=== PATIENT | male | born 1955 | race Caucasian/White ===

== ENCOUNTER 2018-06-27 05:06 | Inpatient (IN) | payer OTHER ==
[~2018-06-27] VITALS: Ht 182.9 cm; Wt 113.4 kg
[2018-06-27] MEDS ORDERED: CELECOXIB 100 MG CAPSULE ONE (05:33)
[2018-06-27] MEDS ORDERED: oxyCODONE HCL SR 10MG TAB.SR.12H PO ONE (05:33)
[2018-06-27] MEDS ORDERED: CEFAZOLIN SODIUM/DEXTROSE,ISO 50 ML IV ONE (05:34)
[2018-06-27] MEDS ORDERED: ACETAMINOPHEN 325 MG TABLET ONE (05:34)
[2018-06-27] MEDS ORDERED: BACITRACIN 50000 UNITS/VIAL ONE (05:59)
[2018-06-27] MEDS ORDERED: ANESTHESIA TRAY IN PYXIS 1 EA TRAY MC ONE (05:59)
[2018-06-27] MEDS ORDERED: KETOROLAC TROMETHAMINE INJ 30 MG/ML VIAL ONE (05:59)
[2018-06-27] MEDS ORDERED: BUPIVACAINE MPF 0.5% W/EPI INJ 30 ML VIAL ONE (05:59)
[2018-06-27] MEDS ORDERED: BUPIVACAINE 0.75% DEXT-PF 2 ML AMPUL ONE (06:26)
[2018-06-27] MEDS ORDERED: FENTANYL PF 100MCG/2ML AMPUL ONE (06:26)
[2018-06-27] MEDS ORDERED: MIDAZOLAM HCL 2 MG/2ML VIAL ONE (06:27)
[2018-06-27] MEDS ORDERED: TRANEXAMIC ACID 3,000 MG in SODIUM CHLORIDE IRRIG SOLUTION 70 ML IR ONE (07:00)
[2018-06-27] MEDS ORDERED: TYLENOL 650 MG TABLET PO PRN (10:00)
[2018-06-27] MEDS ORDERED: DULCOLAX 10 MG/SUPP.RECT RC PRN (10:00)
[2018-06-27] MEDS ORDERED: HYDROCODONE/APAP 5/325MG 1 EACH TABLET PO PRN ×2 (10:00→13:30)
[2018-06-27] MEDS ORDERED: SENOKOT 8.6 MG TABLET PO PRN (10:00)
[2018-06-27] MEDS ORDERED: ZOFRAN 4mg/2ML IV PRN (10:00)
[2018-06-27] MEDS ORDERED: COLACE 250 MG CAPSULE PO PRN (10:00)
[2018-06-27 10:05] VITALS: BP 128/78
--- NOTE | 2018-06-27 10:10 | NUR ---
RN NOTES PATIENT ALERT AND ORIENTED X4, COMFORTABLE AT THIS TIME, ANESTHESIA STARTING TO WEAR OFF, NO DISTRESS NOTED, VITALS STABLE, ON IVF LR AT THIS TIME FROM RECOVERY. REPORT GIVEN. PLACED ON TELE MONITOR. NEEDS ATTENDED AND MET, ICE PACK APPLIED ON LEFT KNEE. SKIN ASSESSMENT UNABLE TO COMPLETE DUE TO PAIN, UNABLE TO CHECK PATIENT'S BACK AT THIS TIME. CALL LIGHT WITHIN REACH, WILL CONTINUE TO MONITOR.
[2018-06-27] MEDS ORDERED: MORPHINE SULFATE INJ 2 MG/ML DISP.SYRIN IV PRN (11:00)
[2018-06-27] MEDS: HYDROMORPHONE INJ 2 MG/ML DISP.SYRIN SQ PRN (11:26)
[2018-06-27] MEDS: IV D5/0.45 NACL 1,000 ML IV PRN ×2 (11:29→19:57)
[2018-06-27] MEDS ORDERED: ONDANSETRON HCL/PF 4 MG/2 ML VIAL IVP PRN ×2 (11:30→13:30)
[2018-06-27] MEDS ORDERED: diphenhydrAMINE HCL 25 MG CAPSULE PO PRN (11:30)
[2018-06-27] MEDS ORDERED: CLONIDINE HCL 0.1 MG TABLET PO PRN (11:30)
[2018-06-27] MEDS ORDERED: MENTHOL/CETYLPYRD (CEPACOL) 1 LOZ LOZENGE MM PRN (11:30)
[2018-06-27] MEDS ORDERED: MAG HYDROX/AL HYDROX/SIMETH 30 ML UDC PO PRN ×2 (11:30→13:30)
[2018-06-27] MEDS ORDERED: NALOXONE HCL 0.4 MG/ML AMPUL IV PRN (11:30)
[2018-06-27] MEDS ORDERED: MAGNESIUM HYDROXIDE 30 ML UDC PO PRN ×2 (11:30→13:30)
[2018-06-27] MEDS ORDERED: oxyCODONE IR immediate release 5 MG PO PRN ×2 (11:30)
--- NOTE | 2018-06-27 11:30 | NUR ---
RN NOTES PATIENT IS C/O 10/10 PAIN ON LEFT KNEE. GIVEN DILAUDID 1MG. PATIENT IS ON TELE MONITOR WHICH SHOWS A. FLUTTER IN 40S. DR. SOLARES MADE AWARE WITH ORDER OF STAT EKG AND CONSULT WITH DR. RAUSCH. PATIENT'S NEEDS ATTENDED, KEPT COMFORTABLE, CALL LIGHT WITHIN REACH,WILL CONTINUE TO MONITOR.
[2018-06-27] MEDS ORDERED: METF-442 PO (11:47)
[2018-06-27] MEDS ORDERED: LISI-607 PO (11:47)
[2018-06-27 12:11] LABS: BASOPHILS % (AUTO) 0.5 % (0.0-2.0); EOSINOPHILS % (AUTO) 1.8 % (0.0-6.0); HEMATOCRIT 40 % (39-51); HEMOGLOBIN 12.8 g/dL (13.5-17.5); LYMPHOCYTES # (AUTO) 2.1 /CMM (0.8-4.8); LYMPHOCYTES % (AUTO) 29.2 % (20.0-44.0); MEAN CORPUSCULAR HGB CONC 32 g/dl (31.0-36.0); MEAN CORPUSCULAR VOLUME 92 fL (80-96); MONOCYTES # (AUTO) 0.4 /CMM (0.1-1.30); MONOCYTES % (AUTO) 5.2 % (2.0-12.0); NEUTROPHILS # (AUTO) 4.6 /CMM (1.8-8.9); NEUTROPHILS % (AUTO) 63.3 % (43.0-81.0); PLATELET COUNT (AUTO) 144 /CMM (150-450); RDW COEFFICIENT OF VARIATION 13.6 (11.5-15.0); RED BLOOD CELL COUNT(AUTO) 4.36 MIL/uL (4.5-6.0); WHITE BLOOD COUNT (AUTO) 7.2 K/uL (4.3-11.0)
[2018-06-27 12:24] LABS: CALCIUM, SERUM 8.5 mg/dL (8.5-10.1); CREATININE 0.9 mg/dL (0.6-1.3); POTASSIUM 4.3 mmol/L (3.5-5.1)
[2018-06-27 12:30] LABS: ALBUMIN 3.3 g/dL (3.4-5.0); BILIRUBIN,TOTAL 0.6 mg/dL (0.2-1.0); MAGNESIUM 1.4 mg/dL (1.8-2.4); PHOSPHORUS 3.2 mg/dL (2.5-4.9); TOTAL PROTEIN, SERUM 6.3 g/dL (6.4-8.2)
[2018-06-27] MEDS ORDERED: ZOLPIDEM TARTRATE 5 MG TABLET PO PRN (13:30)
[2018-06-27] MEDS ORDERED: ACETAMINOPHEN 325 MG TABLET PO PRN (13:30)
[2018-06-27] MEDS ORDERED: Z GUARD REMEDY 2 OZ OINT TP PRN (13:30)
--- NOTE | 2018-06-27 13:52 | NUR ---
KADEN NOTES PATIENT IS STILL C/O PAIN 04/22 AFTER OXYCODONE, DR. RABAGO MADE AWARE AND WILL MAKE CHANGES. WAITING FOR ORDERS. Addendum: 06/27/18 at 1942 by FELIPE ASHTON RN ADDENDUM: SKIN ASSESSMENT OFFERED, BUT PATIENT REFUSED DUE TO PAIN. WILL OFFER AGAIN.
[2018-06-27] MEDS ORDERED: HYDROMORPHONE INJ 2 MG/ML DISP.SYRIN SQ ONE (14:00)
[2018-06-27] MEDS ORDERED: HYDROMORPHONE MDV 30 MG in IV NS 0.9% 15 ML, PCA TOTAL VOLUME 1 BAG IV PRN ×3 (14:00)
[2018-06-27] MEDS ORDERED: KEY,NONCONTROL,TO KEEP IN PYXI 1 EA MC ONE (14:36)
[2018-06-27] MEDS: ANCEF 1 G in IV D5W 50 ML IV SCH ×2 (14:59→23:15)
--- NOTE | 2018-06-27 15:45 | NUR ---
RN NOTES PATIENT STARTED ON OFFBEARER PUMP, PER PATIENT HE'S COMFORTABLE, AT THIS TIME. PAIN LEVEL IS 3/10. NO DISTRESS NOTED. NEEDS ATTENDED AND MET, CALL LIGHT WITHIN REACH, WILL CONTINUE TO MONITOR.
[2018-06-27 16:00] VITALS: BP 130/82
[2018-06-27] MEDS: METFORMIN 500 MG TABLET PO SCH (16:47)
[2018-06-27] MEDS: DOCUSATE SODIUM 100 MG CAPSULE PO SCH (16:47)
[2018-06-27] MEDS: RIVAROXABAN 10 MG TABLET PO SCH (16:50)
--- NOTE | 2018-06-27 19:00 | NUR ---
RECIEVED ALERT AND ORIENTATED SPPECH CLEAR SMILING STATED HIS PAIN LEVEL IS A 1 OR 2. FACTORY LAY OUT ENGINEER PUMP REVIEWED WITH HIM AT THE BEDSIDE. MD GEM IN TO SEE HIM. LEFT FOOT PPP FOOT MOVEMENT AND WARMTH PRESENT
--- NOTE | 2018-06-27 19:38 | NUR ---
RN NOTES RECEIVED ORDER TO GIVE MAGNESIUM 4GM FROM DR. SOLARES, ORDER NOTED AND CARRIED OUT. PATIENT ALERT AND ORIENTED X4, PT EVAL WAS NOT DONE TODAY DUE TO PAIN, PATIENT IN NO DISTRESS, DENIES PAIN. ASSOCIATE PROFESSOR PLANT PATHOLOGY PUMP REVIEWED TOTAL DOSE GIVEN 1MG, ATTEMPT 6, EFFECTIVE AT THIS TIME. NEEDS ATTENDED AND MET, CALL LIGHT WITHIN REACH, WILL ENDORSE TO [facility] FOR ALISE. Addendum: 06/27/18 at 1943 by FELIPE ASHTON RN ADDENDUM: SKIN ASSESSMENT REFUSED BY PATIENT, WILL ENDORSE TO [facility].
[2018-06-27] MEDS: Magnesium 1GM/D5W 100ML PREMIX 100 ML IV SCH ×4 (19:43→23:15)
[2018-06-27 20:00] VITALS: BP 136/75
[2018-06-27 20:33] VITALS: BP 136/75
[2018-06-27] MEDS ORDERED: IV NS 0.9% 1,000 ML IV PRN (21:30)
[2018-06-27] MEDS: FAMOTIDINE (20 MG) 20 MG TABLET PO SCH (21:35)
[2018-06-27] MEDS: TAMSULOSIN 0.4 MG CAP.SR.24H PO SCH (21:35)
[2018-06-27] MEDS ORDERED: AMBIEN 5 MG TABLET PO PRN (22:00)
[2018-06-28] VITALS: BP 143/78
[2018-06-28 04:00] VITALS: BP 126/62
--- NOTE | 2018-06-28 06:01 | NUR ---
MEDICATED SELF WITH THE VENEER JOINTER RETURNER DILAUDUD X2 AND EFFECTIVE TO GET HIM COMFORTABLE FOR THE NIGHT SLEPT WELL, SNORING.LEFT LEG KEPT IN GOOD ALIGNMENT, PPP, FOOT WARM AND MOVEMENT SEEN. [facility] CATH REMOVED ORDERED AND URINAL PLACED AT THE BEDSIDE WITH EXPLAINATION
[2018-06-28 07:14] LABS: BASOPHILS % (AUTO) 0.3 % (0.0-2.0); EOSINOPHILS % (AUTO) 1.4 % (0.0-6.0); HEMATOCRIT 37 % (39-51); HEMOGLOBIN 12.2 g/dL (13.5-17.5); LYMPHOCYTES # (AUTO) 1.3 /CMM (0.8-4.8); LYMPHOCYTES % (AUTO) 17.6 % (20.0-44.0); MEAN CORPUSCULAR HGB CONC 33 g/dl (31.0-36.0); MEAN CORPUSCULAR VOLUME 92 fL (80-96); MONOCYTES # (AUTO) 0.5 /CMM (0.1-1.30); MONOCYTES % (AUTO) 6.9 % (2.0-12.0); NEUTROPHILS # (AUTO) 5.6 /CMM (1.8-8.9); NEUTROPHILS % (AUTO) 73.8 % (43.0-81.0); PLATELET COUNT (AUTO) 143 /CMM (150-450); RDW COEFFICIENT OF VARIATION 13.9 (11.5-15.0); RED BLOOD CELL COUNT(AUTO) 4.01 MIL/uL (4.5-6.0); WHITE BLOOD COUNT (AUTO) 7.5 K/uL (4.3-11.0)
--- NOTE | 2018-06-28 07:15 | NUR ---
MS RN RECEIVED ON BED, AWAKE,ALERT,ORIENTED X4,NOT IN ANY FORM OF DISTRESS, RESPIRATIONS EVEN AND UNLABORED,NO SOB NOTED, LUNGS ARE CLEAR, ABDOMEN SOFT,POSITIVE BOWEL SOUNDS,S/P LEFT KNEE ARTHROPLASTY, ON PAIN AT THIS TIME, PATIENT ON PULP HOUSE SUPERVISOR DILAUDID,WILL MONITOR PATIENT.
[2018-06-28 07:22] LABS: ALANINE AMINOTRANSFERASE 14 U/L (12-78); ALBUMIN 3.1 g/dL (3.4-5.0); ALKALINE PHOSPHATASE 91 U/L (46-116); ASPARTATE AMINOTRANSFERASE 11 U/L (15-37); BILIRUBIN,TOTAL 0.8 mg/dL (0.2-1.0); CALCIUM, SERUM 8.2 mg/dL (8.5-10.1); CARBON DIOXIDE 25 mmol/L (21-32); CHLORIDE 100 mmol/L (98-107); CREATININE 0.9 mg/dL (0.6-1.3); GLUCOSE 209 mg/dL (74-106); MAGNESIUM 1.8 mg/dL (1.8-2.4); POTASSIUM 4.2 mmol/L (3.5-5.1); SODIUM SERUM 131 mmol/L (136-145); TOTAL PROTEIN, SERUM 6.1 g/dL (6.4-8.2); UREA NITROGEN, BLOOD 15 mg/dL (7-18)
[2018-06-28 07:24] LABS: CHOLESTEROL 110 mg/dL (<200); HDL CHOLESTEROL 34 mg/dL (40-60); LDL 69 mg/dL (0-99); TRIGLYCERIDES 48 mg/dL (30-150)
[2018-06-28 07:28] LABS: TROPONIN I < 0.017 ng/mL (0.00-0.056)
[2018-06-28 08:00] VITALS: BP 126/64
--- NOTE | 2018-06-28 08:50 | NUR ---
MS RN WAS SEEN BY DR. RAUSCH ,AWARE THAT PT IS A FLUTTER ON MONITOR, W/ ORDERS MADE AT THIS TIME.
[2018-06-28] MEDS ORDERED: ASPIRIN 325 MG TABLET PO SCH (09:00)
--- NOTE | 2018-06-28 09:30 | NUR ---
MS RN DUE MEDS GIVEN,TOLERATED WELL. STILL ON PAIN TEXT DR. RABAGO FOR MORE PAIN MEDS.
[2018-06-28] MEDS: DIGOXIN INJ 0.5 MG/2 ML AMPUL IV SCH ×3 (10:00→21:49)
[2018-06-28] MEDS: METFORMIN 500 MG TABLET PO SCH ×2 (10:00→17:50)
[2018-06-28] MEDS: DOCUSATE SODIUM 100 MG CAPSULE PO SCH ×2 (10:00→17:49)
[2018-06-28] MEDS: LISINOPRIL (5MG) 5 MG TABLET PO SCH (10:01)
[2018-06-28] MEDS: FAMOTIDINE (20 MG) 20 MG TABLET PO SCH ×2 (10:01→21:43)
--- NOTE | 2018-06-28 11:00 | NUR ---
ms rn up w/ pt, tolerated well.
[2018-06-28] MEDS ORDERED: BISACODYL SUPP (10 MG) 10 MG/SUPP.RECT SUPP.RECT RC PRN (12:00)
[2018-06-28] MEDS ORDERED: DIGOXIN INJ 0.5 MG/2 ML AMPUL IV SCH (12:00)
[2018-06-28] MEDS ORDERED: BISACODYL (5 MG) 5 MG TABLET.DR PO PRN (12:00)
[2018-06-28] MEDS: HYDROMORPHONE INJ 2 MG/ML DISP.SYRIN SQ PRN (13:54)
--- NOTE | 2018-06-28 14:00 | NUR ---
ms rn walked w/ pt, tolerated well.
[2018-06-28] MEDS: POLYETHYLENE GLYCOL 3350 17 GM POWD.PACK PO SCH ×2 (15:24→21:43)
[2018-06-28] MEDS: oxyCODONE IR immediate release 5 MG PO PRN (15:25)
[2018-06-28 16:00] VITALS: BP 133/79
[2018-06-28] MEDS: RIVAROXABAN 10 MG TABLET PO SCH (17:50)
--- NOTE | 2018-06-28 18:13 | NUR ---
ms rn on bed, pain is manageable,no distress noted,all needs attended.
--- NOTE | 2018-06-28 19:40 | NUR ---
TELE/RN NOTES RECEIVED PT. LYING IN BED. PT. IS AWAKE, ALERT AND ORIENTED X3. BREATHING EVEN AND UNLABORED ON ROOM AIR. NO SOB, RESPIRATORY DISTRESS OR COMPLAINTS OF PAIN NOTED AT THIS TIME. PT. WITH EXTERNAL BENCH MOLDER APPRENTICE PRESENT AND INTACT CURRENT RHYTHM = AFLUTTER HR 132. PT. WITH LEFT HAND 22 GAUGE IV SALINE LOCK PRESENT, PATENT AND INTACT. PT. WITH LEFT KNEE POST-OP DRESSING PRESENT, CLEAN, DRY AND INTACT. NO BLEEDING OR DRAINAGE NOTED. BED LOCKED AND IN LOWEST POSITION, SIDE RAILS UP X2, BED ALARM ON, CALL LIGHT WITHIN REACH, WILL CONTINUE TO MONITOR.
[2018-06-28 20:00] VITALS: BP 150/75
[2018-06-28 20:06] VITALS: BP 150/75
[2018-06-28] MEDS ORDERED: KEY,NONCONTROL,TO KEEP IN PYXI 1 EA MC ONE (20:07)
--- NOTE | 2018-06-28 20:40 | NUR ---
TELE/RN NOTES PT. WITH TEMPERATURE OF 100.3. NO COMPLAINTS OF PAIN NOTED AT THIS TIME. REMOVED PT. BLANKETS AND COOLING MEASURES IMPLEMENTED. WILL CONTINUE TO MONITOR.
--- NOTE | 2018-06-28 21:40 | NUR ---
TELE/RN NOTES PT. TEMPERATURE 98.9 COOLING MEASURES EFFECTIVE. WILL CONTINUE COOLING MEASURES. WILL CONTINUE TO MONITOR.
[2018-06-28] MEDS: TAMSULOSIN 0.4 MG CAP.SR.24H PO SCH (21:43)
[2018-06-29] VITALS (7 sets, daily range): BP systolic 121–155; BP diastolic 57–84
--- NOTE | 2018-06-29 00:20 | NUR ---
TELE/RN NOTES PT. TEMPERATURE 100.7 F WILL CONTINUE COOLING MEASURES. WILL CONTINUE TO MONITOR.
--- NOTE | 2018-06-29 01:30 | NUR ---
TELE/RN NOTES PT. TEMPERATURE 99.4 WILL CONTINUE COOLING MEASURES. WILL CONTINUE TO MONITOR.
--- NOTE | 2018-06-29 06:28 | NUR ---
TELE/RN NOTES PT. IS LYING IN BED RESTING. BREATHING EVEN AND UNLABORED ON ROOM AIR. NO SOB, RESPIRATORY DISTRESS OR COMPLAINTS OF PAIN NOTED AT THIS TIME. PT. WITH EXTERNAL HEALTH POLICY ANALYST PRESENT AND INTACT CURRENT RHYTHM = AFLUTTER HR 75. PT. WITH RIGHT UPPER ARM 22 GAUGE IV SALINE LOCK PRESENT, PATENT AND INTACT. ALL PT. NEEDS MET. BED LOCKED AND IN LOWEST POSITION, SIDE RAILS UP X2, BED ALARM ON, CALL LIGHT WITHIN REACH, WILL ENDORSE TO DAYSHIFT NURSE FOR CONTINUITY OF CARE.
[2018-06-29 07:15] LABS: BASOPHILS % (AUTO) 0.2 % (0.0-2.0); EOSINOPHILS % (AUTO) 0.4 % (0.0-6.0); HEMATOCRIT 34 % (39-51); HEMOGLOBIN 11.2 g/dL (13.5-17.5); LYMPHOCYTES # (AUTO) 1.7 /CMM (0.8-4.8); LYMPHOCYTES % (AUTO) 18.9 % (20.0-44.0); MEAN CORPUSCULAR HGB CONC 33 g/dl (31.0-36.0); MEAN CORPUSCULAR VOLUME 92 fL (80-96); MONOCYTES # (AUTO) 0.8 /CMM (0.1-1.30); MONOCYTES % (AUTO) 8.3 % (2.0-12.0); NEUTROPHILS # (AUTO) 6.6 /CMM (1.8-8.9); NEUTROPHILS % (AUTO) 72.2 % (43.0-81.0); PLATELET COUNT (AUTO) 126 /CMM (150-450); RDW COEFFICIENT OF VARIATION 13.4 (11.5-15.0); RED BLOOD CELL COUNT(AUTO) 3.71 MIL/uL (4.5-6.0); WHITE BLOOD COUNT (AUTO) 9.1 K/uL (4.3-11.0)
[2018-06-29 07:28] LABS: CALCIUM, SERUM 8.4 mg/dL (8.5-10.1); CREATININE 0.9 mg/dL (0.6-1.3); MAGNESIUM 1.7 mg/dL (1.8-2.4); PHOSPHORUS 2.4 mg/dL (2.5-4.9); POTASSIUM 4.1 mmol/L (3.5-5.1)
--- NOTE | 2018-06-29 07:30 | NUR ---
ms rn received on bed, awake,alert,oriented x4,not in any form of distress, respirations even and unlabored,no sob noted, lungs are clear,abdomen soft,positive bowel sounds, s/p left knee sx w/ dressing dry and intact,cpm machine on, tolerating well. will monitor patient's condition.
[2018-06-29] MEDS: FAMOTIDINE (20 MG) 20 MG TABLET PO SCH ×2 (07:56→21:16)
[2018-06-29] MEDS: HYDROMORPHONE INJ 2 MG/ML DISP.SYRIN SQ PRN (07:56)
[2018-06-29] MEDS: METFORMIN 500 MG TABLET PO SCH ×2 (07:56→17:58)
[2018-06-29] MEDS: DOCUSATE SODIUM 100 MG CAPSULE PO SCH ×2 (07:57→17:58)
--- NOTE | 2018-06-29 08:30 | NUR ---
ms benitez breakfast served,due meds given tolerated well.
[2018-06-29] MEDS ORDERED: NEUTRA PHOS 1 POWD.PACKET PO ONE (10:30)
[2018-06-29] MEDS: oxyCODONE IR immediate release 5 MG PO PRN (10:54)
[2018-06-29] MEDS: Magnesium 1GM/D5W 100ML PREMIX 100 ML IV SCH ×3 (10:55→12:59)
[2018-06-29] MEDS: LISINOPRIL (5MG) 5 MG TABLET PO SCH (11:19)
--- NOTE | 2018-06-29 12:00 | NUR ---
ms rn was seen by dr. cedillo ,for d/c plan in am.
[2018-06-29] MEDS: DIGOXIN INJ 0.5 MG/2 ML AMPUL IV SCH ×2 (13:01→17:58)
[2018-06-29] MEDS ORDERED: MAGNESIUM HYDROXIDE 30 ML UDC PO ONE (15:34)
[2018-06-29] MEDS: RIVAROXABAN 10 MG TABLET PO SCH (18:02)
--- NOTE | 2018-06-29 19:07 | NUR ---
ms rn on bed, no distress noted.
--- NOTE | 2018-06-29 19:20 | NUR ---
TELE/RN OPENING NOTES PT RECEIVED WITH EYES CLOSED. OPENS EYES TO NAME. ON ROOM AIR, BREATHING EVEN AND UNLABORED. DENIES SOB. PAIN TO LEFT KNEE NOTED AT 2/10, TOLERABLE AT THIS TIME. DOES NOT WANT PAIN MEDICATION. ON TELE MONITOR SHOWING A FLUTTER 106. IV TO RFA PATENT AND INTACT. BED IN LOW/LOCKED POSITION WITH CALL LIGHT IN REACH. BILATERAL UPPER RAILS IN PLACE. WILL CONTINUE TO MONITOR
[2018-06-29] MEDS: TAMSULOSIN 0.4 MG CAP.SR.24H PO SCH (21:15)
[2018-06-29] MEDS: POLYETHYLENE GLYCOL 3350 17 GM POWD.PACK PO SCH (21:16)
[2018-06-30] VITALS: BP 150/79
[2018-06-30 04:00] VITALS: BP 141/73
[2018-06-30] MEDS ORDERED: DIGOXIN INJ 0.5 MG/2 ML AMPUL ONE (06:21)
[2018-06-30] MEDS: DIGOXIN INJ 0.5 MG/2 ML AMPUL IV SCH (06:27)
--- NOTE | 2018-06-30 06:36 | NUR ---
TELE/RN NOTES SPOKE TO PEMA BRYAN. INFORMED HIM THAT 0000 DIGOXIN ADMINISTRATION LATE DUE TO ANOTHER PT UNSTABLE AND RAPID RESPONSE. NOW 6HOURS LATE. OKAY TO ADMINISTER NOW. MEDICAL I D SALES MADE AWARE. ADMINISTERED IV DIGOXIN ORDERED. CONSTRUCTION MANAGEMENT INSTRUCTOR AWARE
--- NOTE | 2018-06-30 07:30 | NUR ---
MEAT MOLDER NOTES PT IN BED, AWAKE, ALERT AND ORIENTED, WITH COMPLAINT OF SLIGHT PAIN AT LEFT KNEE PAIN 2/10, DOES NOT WANT ANY PAIN MEDICATION AT THIS TIME, PT IS LOOKING FORWARD FOR PHYSICAL THERAPY TREATMENTS, CALL LIGHT WITHIN REACH.
[2018-06-30 07:46] LABS: BASOPHILS % (AUTO) 0.2 % (0.0-2.0); EOSINOPHILS % (AUTO) 0.6 % (0.0-6.0); HEMATOCRIT 32 % (39-51); HEMOGLOBIN 10.5 g/dL (13.5-17.5); LYMPHOCYTES # (AUTO) 1.2 /CMM (0.8-4.8); LYMPHOCYTES % (AUTO) 13.4 % (20.0-44.0); MEAN CORPUSCULAR HGB CONC 33 g/dl (31.0-36.0); MEAN CORPUSCULAR VOLUME 92 fL (80-96); MONOCYTES # (AUTO) 0.8 /CMM (0.1-1.30); MONOCYTES % (AUTO) 8.7 % (2.0-12.0); NEUTROPHILS # (AUTO) 6.9 /CMM (1.8-8.9); NEUTROPHILS % (AUTO) 77.1 % (43.0-81.0); PLATELET COUNT (AUTO) 118 /CMM (150-450); RDW COEFFICIENT OF VARIATION 13.7 (11.5-15.0); RED BLOOD CELL COUNT(AUTO) 3.43 MIL/uL (4.5-6.0)
[2018-06-30 08:00] VITALS: BP 141/74
[2018-06-30 08:00] LABS: CALCIUM, SERUM 8.6 mg/dL (8.5-10.1); CREATININE 0.9 mg/dL (0.6-1.3); MAGNESIUM 1.6 mg/dL (1.8-2.4); PHOSPHORUS 2.3 mg/dL (2.5-4.9)
--- NOTE | 2018-06-30 08:05 | NUR ---
TELE/RN CLOSING NOTES PT AWAKE, RESTING COMFORTABLY IN BED. REMAINS ON ROOM AIR, BREATHING EVEN AND UNLABORED. DENIES SOB. PAIN TO LEFT KNEE AT TOLERABLE THROUGHOUT SHIFT. NO REQUESTS FOR PAIN MEDICATION. ON TELE MONITOR SHOWING A FLUTTER 90'S. IV TO RFA PATENT AND INTACT. NO SIGNIFICANT CHANGES OVERNIGHT. PT REQUESTED TO BE PLACED BACK ON CPM MACHINE. CURRENTLY ON GOING. BED IN LOW/LOCKED POSITION WITH CALL LIGHT IN REACH. BILATERAL UPPER RAILS IN PLACE. ENDORSED TO DAY SHIFT RN
[2018-06-30] MEDS: METFORMIN 500 MG TABLET PO SCH ×2 (08:47→16:25)
[2018-06-30] MEDS: FAMOTIDINE (20 MG) 20 MG TABLET PO SCH (08:48)
[2018-06-30] MEDS: DOCUSATE SODIUM 100 MG CAPSULE PO SCH ×3 (08:48→16:35)
[2018-06-30] MEDS: LISINOPRIL (5MG) 5 MG TABLET PO SCH (08:48)
[2018-06-30] MEDS: NEUTRA PHOS 1 POWD.PACKET PO SCH ×2 (08:50→16:24)
[2018-06-30] MEDS: oxyCODONE IR immediate release 5 MG PO PRN ×3 (08:56→18:29)
[2018-06-30] MEDS ORDERED: METOPROLOL TARTRATE 50 MG TABLET PO SCH (09:00)
[2018-06-30] MEDS: Magnesium 1GM/D5W 100ML PREMIX 100 ML IV SCH ×2 (09:17→12:00)
--- NOTE | 2018-06-30 10:45 | NUR ---
RN MS NOTES PT WALKED WITH PHYSICAL THERAPIST USING A WALKER ALONG THE HALLWAY, TOLERATED ACTIVITY WELL.
[2018-06-30] MEDS ORDERED: SENN-168 PO (11:19)
[2018-06-30] MEDS ORDERED: RIVA10TA PO (11:19)
[2018-06-30] MEDS ORDERED: OXYC5CAP18 PO (11:19)
[2018-06-30] MEDS ORDERED: DOCU-141 PO (11:19)
[2018-06-30] MEDS ORDERED: TAMS-12 PO (11:19)
[2018-06-30] MEDS ORDERED: ACET325T53 PO (11:19)
[2018-06-30] MEDS ORDERED: METO50TA16 PO (11:19)
[2018-06-30] MEDS: POLYETHYLENE GLYCOL 3350 17 GM POWD.PACK PO SCH (11:45)
--- NOTE | 2018-06-30 13:59 | NUR ---
RN MS NOTES PT IN BED, RESTING, NO COMPLAINT AT THIS TIME, SEEN BY DR. DICK, DISCHARGE ORDER GIVEN, PT INFORMED, DISCHARGE AND MEDICATION INSTRUCTIONS PROVIDED TO PT, VERBALIZED UNDERSTANDING, CALL LIGHT WITHIN REACH, NEEDS ATTENDED.
[2018-06-30 15:57] VITALS: BP 118/56
[2018-06-30] MEDS: RIVAROXABAN 10 MG TABLET PO SCH (16:27)
--- NOTE | 2018-06-30 17:07 | NUR ---
RN MS NOTES REPORT GIVEN TO KATERINA ALFONSO OF [facility], LADIES UNDERWEAR OPERATOR TIME FOR TRANSPORT IS 1830, PT INFORMED.
--- NOTE | 2018-06-30 18:44 | NUR ---
RN MS NOTES PT IN BED, PAIN MEDICATION GIVEN FOR PAIN MANAGEMENT, RESPIRATIONS NORMAL, BELONGINGS ACCOUNTED FOR, PICKED UP BY 2 AMBULANCE PERSONNEL, LEFT VIA GUERNEY IN STABLE CONDITION, ACCOMPANIED BY DAUGHTER NEWTON.
== END 2018-06-30 18:45 | DRG 470 ==
LOC: DS 05:06 → MED 09:58 → TELE 11:50 → MED 06-30 09:02
PROVIDERS: ADMIT Specialist; ATTEND Family Medicine
PROC: 0SRD0J9 Replacement of Left Knee Joint with Synthetic Substitute, Cemented, Open Approach (ICD-10-PCS; principal; 2018-06-27 06:30)
DX: M17.12 Unilateral primary osteoarthritis, left knee (principal); I48.92 Unspecified atrial flutter; E44.1 Mild protein-calorie malnutrition; E87.1 Hypo-osmolality and hyponatremia; E78.5 Hyperlipidemia, unspecified; I48.91 Unspecified atrial fibrillation; E66.9 Obesity, unspecified; I10 Essential (primary) hypertension; Z68.33 Body mass index [BMI] 33.0-33.9, adult; Z79.01 Long term (current) use of anticoagulants; E11.65 Type 2 diabetes mellitus with hyperglycemia; E88.09 Other disorders of plasma-protein metabolism, not elsewhere classified; E83.42 Hypomagnesemia; E83.39 Other disorders of phosphorus metabolism; Z79.84 Long term (current) use of oral hypoglycemic drugs; Z96.643 Presence of artificial hip joint, bilateral
CPT/HCPCS: 36415; 71045-TC; 80048-TC; 80053-TC; 80061-TC; 82962-TC; 83735-TC; 84100-TC; 84484-TC; 85025-TC; 86850-TC; 86921-TC; 87040-TC; 87081-TC; 87086-TC; 88305-TC; 88311-TC; 93307-TC; 97110-TC; 97116-TC; 97530-TC; 97760-TC; A4216; A4217; A6402; C1713; G0378; J0690; J1160; J1170; J1885; J2250; J2405; J2704; J3010; J3475; J3490; J7030; J7060; L1830; Z7610